=== PATIENT | female | born 1945 | race Caucasian/White ===

== ENCOUNTER → 2017-09-17 | Outpatient (CLI) | payer OTHER ==
[2017-09-17 15:59] LABS: Basophils % (A) 1 %; Eosinophils # (A) 0.2 k/uL (0-0.7); Eosinophils % (A) 3 %; HCT 44.3 % (34.0-46.0); HGB 14.6 gm/dL (11.4-16.0); Lymphocytes # (A) 2.3 k/uL (1.0-4.8); Lymphocytes % (A) 30 %; MCH 30.4 pg (25.0-35.0); MCHC 32.9 g/dL (31.0-37.0); MCV 92.5 fL (80.0-100.0); Monocytes # (A) 0.5 k/uL (0-1.0); Monocytes % (A) 7 %; Neutrophils # (A) 4.4 k/uL (1.3-7.7); Neutrophils % (A) 57 %; Platelet Count 203 k/uL (150-450); RDW 13.2 % (11.5-15.5); WBC 7.7 k/uL (3.8-10.6)
== END ==
LOC: LABPAT 14:32
PROVIDERS: ATTEND Obstetrics & Gynecology
DX: Z01.818 Encounter for other preprocedural examination (principal); N95.0 Postmenopausal bleeding; I10 Essential (primary) hypertension
CPT/HCPCS: 36415; 85025; 93005

== ENCOUNTER 2017-09-25 08:39 | Day surgery (SDC) | payer MEDICARE, OTHER ==
[2017-09-19 13:27] VITALS: BMI 37.5
[~2017-09-25 08:39] MED LIST: DEXAMETHASONE SOD PHOSPHATE 10 MG/ML 1 ML VIAL IV ONE; LACTATED RINGERS 1,000 ML IV SCH; MIDAZOLAM 2 MG/2 ML VIAL IV PRN; ONDANSETRON 4 MG/2 ML VIAL IVP ONE; fentaNYL (PF) 50 MCG/ML 2 ML AMP IV PRN
[2017-09-25 09:27] VITALS: RESP 16
[2017-09-25] MEDS ORDERED: MIDAZOLAM 2 MG/2 ML VIAL ONE (10:34)
[2017-09-25] MEDS ORDERED: fentaNYL (PF) 50 MCG/ML 2 ML AMP ONE (10:34)
[2017-09-25] MEDS ORDERED: PROPOFOL 10 MG/ML 20 ML VIAL IV ONE (10:34)
--- NOTE | 2017-09-25 11:04 | P.OP ---
Date of Procedure: 09/25/17 Preoperative Diagnosis: Postmenopausal bleeding, thickened endometrium, cervical stenosis Postoperative Diagnosis: Pathology pending, grade3 rectocele, grade 1-2 uterine prolapse Procedure(s) Performed: D&C, hysteroscopy Anesthesia: MABLEA Surgeon: Tata Olson Estimated Blood Loss (ml): 10 IV fluids (ml): 400 Urine output (ml): 300 Pathology: other (Endometrial curettings) Condition: stable Disposition: PACU Operative Findings: Shaggy proliferative-type appearing tissue in the uterus, no obvious polyps or tumors. Description of Procedure: Patient is brought to the operating suite where a general anesthetic is delivered. She's placed in the dorsal lithotomy position, the cervix vagina perineum and perineal areas are all prepped and draped in the usual sterile fashion. Examination under anesthesia reveals a retroverted uterus, negative adnexa bilaterally. There is a grade 3 rectocele noted, and a grade 1-2 uterine prolapse. Bladder is drained for approximately 300 mL of clear yellow urine. Weighted speculum was placed into the vagina and the anterior lip of the cervix is grasped with a double-tooth tenaculum. Uterus sounds to a depth of 8 cm in the retroverted position. Cervix is gently and systematically dilated using Hanks dilators. Hysteroscope was placed and fluid is infused. Cavity is distended and inspected. There is a fair amount of proliferative- type appearing tissue noted, no obvious polyps fibroids or defects. Hysteroscope was removed. A medium sharp curette is placed and the cavity is gently and systematically curettaged. A small to moderate amount of tissue is obtained. Polyp forceps are used, and the cavity is noted to be clear. Bleeding is minimal. All sponge needle and enhancement counts are correct, all instrumentation is removed from the vagina. Toradol is given prior to leaving the operative suite. Total estimated blood loss 10 mL, urine 300 mL, fluid replacement 400 mL 's. Patient is brought back to recovery room in very good condition with stable vital signs including pulse of 57, blood pressure 153/81, 97% O2 saturation.
[2017-09-25 11:29] VITALS: TEMP 97
[2017-09-25 12:26] VITALS: BP 153/74; PULSE 49
== END 2017-09-25 12:41 | disposition home or self-care (01) ==
LOC: OR 08:39
PROVIDERS: ATTEND Obstetrics & Gynecology
DX: C54.1 Malignant neoplasm of endometrium (principal); N81.4 Uterovaginal prolapse, unspecified; I10 Essential (primary) hypertension; E03.9 Hypothyroidism, unspecified; E66.9 Obesity, unspecified; Z68.37 Body mass index [BMI] 37.0-37.9, adult; F17.210 Nicotine dependence, cigarettes, uncomplicated; J30.9 Allergic rhinitis, unspecified; Z79.82 Long term (current) use of aspirin; Z79.890 Hormone replacement therapy; Z79.899 Other long term (current) drug therapy; Z91.018 Allergy to other foods; Z88.8 Allergy status to other drugs, medicaments and biological substances
CPT/HCPCS: 58558; 88305; J2250; J1100; J2405; J3010; J2704